=== PATIENT | female | born 1950 | race Caucasian/White ===

== ENCOUNTER → 2023-08-12 10:13 | Outpatient (REF) | payer MEDICARE, OTHER, SELFPAY | LOC: HWWDC 10:13 | PROVIDERS: ATTENDING PHYSICIAN Internal Medicine | DX: Z12.31 Encounter for screening mammogram for malignant neoplasm of breast (principal) | CPT/HCPCS: 77063; 77067 ==

== ENCOUNTER → 2023-10-09 08:57 | Outpatient (REF) | payer MEDICARE, OTHER, SELFPAY ==
[2023-10-09 10:13] LABS: % Basophils 0.7 % (0-2); % Eosinophils 1.1 % (0-6); % Immature Granulocytes 0.3 % (0-0.5); % Lymphocytes 26.7 % (20.5-51.1); % Monocytes 8.9 % (1.7-9.3); % Neutrophils 62.3 % (42.2-75.2); Absolute Basophils 0.1 10^3/uL (0-0.2); Absolute Eosinophils 0.1 10^3/uL (0-0.7); Absolute Lymphocytes 2.6 10^3/uL (1.2-3.4); Absolute Monocytes 0.9 10^3/uL (0.1-0.6); Absolute Neutrophils 6.1 10^3/uL (1.4-6.5); Hematocrit 43.8 % (37.0-47.0); Hemoglobin 14.1 g/dL (12.0-16.0); Mean Corp Hgb Conc. 32.2 g/dL (33.0-37.0); Mean Corpuscular Hgb 31.3 pg (27.0-31.0); Mean Corpuscular Volume 97.3 fL (81.0-99.0); Mean Platelet Volume 10.2 fL (7.4-10.4); Nucleated Red Blood Cells % 0 %; Platelet Count 252 10^3/uL (130-400); Red Cell Dist. Width 13.9 % (11.5-14.5); White Blood Cell Count 9.7 10^3/uL (4.8-10.8)
[2023-10-09 10:45] LABS: ALT (SGPT) 14 U/L (0-35); AST (SGOT) 19 U/L (14-36); Albumin 4.2 g/dl (3.5-5.0); Alkaline Phosphatase 67 U/L (38-126); Blood Urea Nitrogen 14 mg/dl (7-17); Calcium 9.9 mg/dl (8.4-10.2); Carbon Dioxide 22 mmol/L (22-30); Chloride 108 mmol/L (98-107); Glucose 94 mg/dl (70-99); HDL Cholesterol 79 mg/dl; LDL Cholesterol, Calculated 61 mg/dl; Sodium 142 mmol/L (135-145); Total Bilirubin 0.9 mg/dl (0.2-1.3); Total Cholesterol 166 mg/dl (50-199); Total Protein 6.6 g/dl (6.3-8.2); Triglyceride 130 mg/dl (10-149); Very Low Density Lipoprotein 26 mg/dl (0-30); eGFR > 60.00
[2023-10-09 11:15] LABS: TSH 5.16 uIU/ml (0.47-4.68)
[2023-10-09 14:13] LABS: Glycohemoglobin (HgbA1c) 5.5 % (4.0-5.6)
== END ==
LOC: REG 08:57
PROVIDERS: ATTENDING PHYSICIAN Internal Medicine
DX: I10 Essential (primary) hypertension (principal); E66.01 Morbid (severe) obesity due to excess calories; F41.9 Anxiety disorder, unspecified; E78.5 Hyperlipidemia, unspecified
CPT/HCPCS: 36415; 80053; 80061; 83036; 84443; 85025

== ENCOUNTER → 2024-03-29 09:10 | Outpatient (REF) | payer MEDICARE, OTHER, SELFPAY ==
--- NOTE | 2024-03-29 10:48 | CARDSERVDEF ---
Echocardiogram with Definity completed after protocol screening completed. Allergies verified.
Patent IV site: __right arm___
IV site flushed with 0.9% NaCl pre and post administration.
Diluted bolus method utilized to enhance visualization of ventricular mayo.
Total volume given: _5___ mL
Patient tolerated all procedures well without complications.
== END ==
LOC: RCS 09:10
PROVIDERS: ATTENDING PHYSICIAN Internal Medicine; FAMILY PHYSICIAN Internal Medicine
DX: I48.0 Paroxysmal atrial fibrillation (principal)
CPT/HCPCS: 93307; Q9957

== ENCOUNTER 2024-05-01 05:54 | Day surgery (SDC) | payer MEDICARE, OTHER, SELFPAY ==
[2024-04-25 10:23] VITALS: BMI 43.9
[2024-05-01] VITALS (15 sets, daily range): BP systolic 110–182; BP diastolic 67–156; BMI 43.9
[2024-05-01] MEDS: NSS 500 IV (06:49)
[2024-05-01 08:54] LABS: ACT-LR - POC 289 Seconds (116-155)
[2024-05-01 09:12] LABS: ACT-LR - POC 339 Seconds (116-155)
[2024-05-01 09:32] LABS: ACT-LR - POC 342 Seconds (116-155)
[2024-05-01 09:56] LABS: ACT-LR - POC 342 Seconds (116-155)
[2024-05-01] MEDS: TYLENOL 650 MG PO (11:02)
--- NOTE | 2024-05-01 12:54 | ITS.CL.ABL ---
[facility] - Ablation
Ablation
Procedure Report:
AFIB ablation:
Mr. Seth is a very pleasant 73 yr old woman with symptomatic persistent AF presented today to the EP lab for atrial fibrillation ablation.
Date of the Procedure:
05/01/2024
Indications:
Persistent atrial fibrillation
Pre-Operative Diagnosis:
Persistent atrial fibrillation
Post-Operative Diagnosis:
Persistent atrial fibrillation
Procedure Performed:
Atrial fibrillation ablation with Pulsed-Field approach for pulmonary vein isolation
Performing Physician:
Gwendolyn Ramos MD
Assistants:
EP staff
Anesthesia:
See anesthesia records
Detailed Description of the Procedure:
Written informed consent was obtained from the patient after a full explanation of the risks and benefits of the procedure including the risks of sedation and anesthesia.
The patient was brought to the electrophysiology laboratory in stable condition in fasting state. Continuous electrocardiographic and hemodynamic monitoring was initiated.
The initial rhythm was atrial fibrillation.
The procedure site was meticulously prepared with surgical scrub and allowed to dry with no pooling. Sterile draping was applied to cover the procedure site. The image intensifier was draped with sterile bag and positioned over the patient. After
infusion of local anesthetic, vascular access was obtained under ultrasound guidance and sheaths were placed over guide wire as detailed below.
Sheath and Catheter Placement:
In the right femoral vein, an 8-[place] sheath was placed under ultrasound guidance for use during the ablation procedure and a mapping catheter was intermittently placed in the high right atrium, right ventricle, left atrium. In the right femoral
vein, another 9-Fr sheath was placed for use during intra-cardiac echo procedure. Another 7Fr sheath was placed in the left femoral vein for CS catheter placement.
The sheaths were upgraded as needed during the case. Intra-cardiac catheters were positioned using direct fluoroscopic guidance. Decapolar catheter advanced into CS position. ICE catheter was placed in RA. The following catheters / sheaths were
placed
Sheaths:
��������� 15Fr steerable sheath (FlexCath Cross�, [employer]) in right femoral vein in right femoral vein
��������� 9Fr in right femoral vein
��������� 7Fr in right femoral vein
Catheters:
��������� SAROJ HD Grid mapping catheter � at locations of RA, LA
��������� PulseSelect� PFA catheter
��������� ICE catheter -AcuNav - at locations of RA, SVC, and RV.
��������� Decapolar Bard catheter in RA and CS
Intracardiac ECHO:
An 8-[place] AcuNav intracardiac ECHO (ICE) probe was advanced through the 9-[place] sheath in the right femoral vein into the right atrium under fluoroscopic and ICE ultrasound image guidance and a baseline ECHO study was performed. The left atrial
size was mildly dilated. There was moderate tricuspid regurgitation. The aortic valve was grossly normal. There was normal left ventricular systolic functions. There is no pericardial effusion. All the four veins were identified and has flow
identified.
During the procedure, ICE was used for monitoring of complications, guidance of trans-septal puncture, monitor the catheter position and tracking ablation lesions. No change in the pericardial space noted throughout the procedure.
Trans-septal Puncture:
Heparin was initiated and infused to maintain appropriate ACT. A J-tipped guidewire was advanced through the 8-[place] sheath in the right femoral vein into the superior vena cava under fluoroscopic and ICE guidance. The 8-[place] sheath was exchanged
for a FlexCath Cross sheath which was advanced into the superior vena cava. An Ac[employer] transseptal access system was utilized to perform the trans-septal puncture. The apparatus was withdrawn until it was in contact with the fossa ovalis. The
position was adjusted based on fluoroscopy and ultrasound images from ICE. Under fluoroscopic, hemodynamic and ICE ultrasound guidance, left atrium was cannulated by advancing the needle. Once atrial septum was cannulated, the needle was pulled back
and a guide wire was advanced through the needle into the left atrium. The guide wire was advanced into the left superior pulmonary vein. Both the sheath and the dilator was advanced into the left atrium. The dilator with the needle was withdrawn.
Blood was aspirated from the FlexCath cross sheath and arterial blood confirmed. The sheath was flushed. Saline injection noted into the left atrium on ICE. The mapping catheter was advanced in the the sheath into the left pulmonary vein. Left
atrial pressure was measured.
3D Electroanatomic Mapping:
Using the HD Grid catheter advanced through sheath into the left atrium, an electroanatomic map (EAM) of the left atrium was created using [employer] mapping system. The map was used for localization of catheter position and tacking of ablation
lesions. The EAM of the left atrium showed 3 pulmonary veins with two left sided and two right sided veins electrically connected to the body the LA. The EAM showed no significant scar in the left atrium.
The LA was normal in size.
Following the EAM, preparation were made for ablation.
Ablation:
Ablation # 1: Pulmonary vein Isolation:
Glycopyrrolate 0.2 mg was given prior to the placement of ablation. Using AquaHydrate� pulsed field ablation system, pulmonary vein isolation was achieved. First the ablation catheter was placed in the LIPV and ostial ablation lesions were performed
in a counter clock prince approach all around the PV ostium circumferentially. Then the catheter was placed on the antral location and multiple ablation lesions were placed circumferentially on the antrum of the vein.
In the similar fashion, the LSPV were isolated.
Then the catheter was moved to right sided veins. The ostial and antral ablations were placed as noted above to the RSPV and RIPV.
Summary of ablation applied:
LSPV: 13 lesions ;�������������� RSPV: 17 lesions
LIPV: 26 lesions; �������������� RIPV: 17 lesions
Total 73 ablation lesions.
Post ablation Electroanatomic mapping:
Once the sinus rhythm achieved, the LA was mapped with HD grid in detail.
The veins were isolated and normal electrograms noted in the posterior wall. Excellent WACA ablation noted with excellent demarcation of LA myocardium and isolated antral tissue. There was dissociated signals were noted in the veins as well.
EPS and Confirmation of the PVI and bidirectional block:
Following achievement of entrance block at the pulmonary veins, pacing from the HD catheter in each of the four veins at 10 milliamps for 2 milliseconds showed entrance and exit block. All PVI were rechecked at the end of the case and remained
isolated with dissociated and local capture with pacing. Entrance and exit block were demonstrated in all veins.
Procedure End
ICE study was done again that showed no epicardial accumulation. No complications noted.
Following the completion of the EP study, catheters were removed. Protamine 30 mg was given at the end of the procedure and ACT was checked repeatedly. The sheaths were removed and hemostasis achieved with VASCADE and manual compression after
acceptable ACT is achieved.
Left atrial Pressure:
Pre ablation: Mean LA pressure was 20mmHg
Post ablation: Mean LA pressure was 14mmHg
Post ablation: Mean RA pressure was 11mmHg
Estimated Blood loss:
<10 cc
Specimens Removed:
None.
Implants / Devices:
None
Urine output:
None
Packs / Drains/ Tubes:
None
Instrument / Sponge Count Correct:
Yes
Complications of the Procedure:
None
Condition of Patient at Time of Transfer:
Hemodynamically stable with no neurological or vascular compromise.
Summary:
Successful atrial fibrillation ablation with Pulsed Field approach for pulmonary vein isolation
Figures from the Procedure:
Figure 1: The electroanatomic mapping (EAM) of the left atrium with bipolar voltage (purple indicates normal electrical activity with ramsey as no myocardial muscle electric activity indicating a line of block or scar.
[2024-05-01] MEDS: ANESTHETIC LOZENGE 1 LOZENGE PO (13:39)
--- NOTE | 2024-05-01 14:21 | W.PN.UPDATE ---
Update Note
Progress Note Update
Pt seen post PFA. Right groin with vascade closure, no ht/bleeding, oob ambulating, urinating without difficulty. Post EKG NSR 70s, no acute changes. Resume Xarelto tonight at usual time. Followup at [facility] as scheduled. Home today if groin site/tele
remain stable.
== END 2024-05-01 14:20 | disposition home or self-care (01) ==
LOC: CATH 05:54
PROVIDERS: ATTENDING PHYSICIAN Internal Medicine Cardiovascular Disease; FAMILY PHYSICIAN Internal Medicine; OTHER PHYSICIAN Internal Medicine
DX: I48.19 Other persistent atrial fibrillation (principal); I10 Essential (primary) hypertension; E78.00 Pure hypercholesterolemia, unspecified; Z79.52 Long term (current) use of systemic steroids; E66.01 Morbid (severe) obesity due to excess calories; Z68.41 Body mass index [BMI] 40.0-44.9, adult
CPT/HCPCS: C1732; C1894; C1730; C1769; C1892; C1759; C1733; C1766; 85347; 86900; 86901; 93005; 93656; C1760